=== PATIENT | female | born 1985 | race American Indian/Alaskan Native ===

== ENCOUNTER 2019-08-14 08:22 | Emergency (ER) | payer MEDICAID ==
[2019-08-14 08:33] VITALS: BP 180/106
--- NOTE | 2019-08-14 09:14 | Emergency Department Report ---
ED Female HPI - General Chief complaint: Urogenital-Female Stated complaint: UTI Time Seen by Provider: 08/14/19 08:59 Source: patient Mode of arrival: Ambulatory Limitations: No Limitations - History of Present Illness Initial comments: 34-year-old -[place] female with a past medical history of diabetes hypertension comes in thinking that she may have a urinary tract infection. Patient denies any pain but has been taking AZO's. She reports she has a العراقي discharge from the vaginal area. Patient denies any fevers or abdominal pain or pelvic pain. She reports her urine is dark she admits to drinking water and sodas. Are you Now?: No Last Menstrual Period: 07/28/19 EDC: 05/03/20 Associated Symptoms: denies other symptoms - Related Data Sexually active: Yes Previous Rx's Medication Instructions Recorded Last Taken Type Doxycycline Hyclate [Doxycycline 100 mg PO Q12HR 5 Days #10 tab 08/14/19 Unknown Rx Hyclate TAB] Allergies Allergy/AdvReac Type Severity Reaction Status Date / Time No Known Allergies Allergy Verified 08/14/19 08:23 ED Review of Systems ROS: Stated complaint: UTI Other details as noted in HPI Comment: All other systems reviewed and negative ED Past Medical Hx - Past Medical History Previous Medical History?: Yes Hx Hypertension: Yes Hx Diabetes: Yes - Surgical History Past Surgical History?: No - Social History Smoking Status: Current Every Day Smoker Substance Use Type: None - Medications Home Medications: Home Medications Medication Instructions Recorded Confirmed Last Taken Type Doxycycline Hyclate [Doxycycline 100 mg PO Q12HR 5 Days #10 tab 08/14/19 Unknown Rx Hyclate TAB] ED Physical Exam - General Limitations: No Limitations ED Course Vital Signs 08/14/19 08:32 Temperature 98.1 F Pulse Rate 91 H Respiratory 18 Rate Blood Pressure 180/106 O2 Sat by Pulse 100 Oximetry ED Medical Decision Making - Lab Data Laboratory Tests 08/14/19 Unknown Urine Color Yellow Urine Turbidity Clear Urine pH 8.0 H Ur Specific [place] 1.008 Urine Protein <15 mg/dl Urine Glucose (UA) Neg Urine Ketones Neg Urine Blood Neg Urine Nitrite Pos Urine Bilirubin Neg Urine Urobilinogen < 2.0 Ur Leukocyte Esterase Neg Urine WBC (Auto) 5.0 Urine RBC (Auto) 1.0 U Epithel Cells (Auto) 3.0 Urine Bacteria (Auto) 1+ - Medical Decision Making 34-year-old -[place] female with a past medical history of diabetes hypertension comes in thinking that she may have a urinary tract infection. Patient denies any pain but has been taking AZO's. She reports she has a العراقي discharge from the vaginal area. Patient denies any fevers or abdominal pain or pelvic pain. She reports her urine is dark she admits to drinking water and sodas. Urinalysis sent to lab. Critical care attestation.: If time is entered above; I have spent that time in minutes in the direct care of this critically ill patient, excluding procedure time. ED Disposition Clinical Impression: UTI (urinary tract infection) Qualifiers: Urinary tract infection type: site unspecified Hematuria presence: without hematuria Qualified Code(s): N39.0 - Urinary tract infection, site not specified Disposition: TO HOME OR SELFCARE Is pt being admited?: No Does the pt Need Aspirin: No Condition: Stable Instructions: Urinary Tract Infection in Women (ED) Prescriptions: Doxycycline Hyclate [Doxycycline Hyclate TAB] 100 mg PO Q12HR 5 Days #10 tab Referrals: PRIMARY CAREMD [Primary Care Provider] - 3-5 Days [facility] [Other] - 3-5 Days Forms: Work/School Release Form(ED)
[2019-08-14 09:39] LABS: Bacteria,Urine 1+ /HPF (Negative); Bilirubin,Urine NEG (Negative); Blood,Urine NEG (Negative); Color,Urine Yellow (Yellow); Protein,Urine <15 mg/dL mg/dL (Negative); Urobilinogen,Urine < 2.0 mg/dL (<2.0)
== END 2019-08-14 10:23 | disposition home or self-care (01) ==
LOC: ED 08:22
DX: N39.0 Urinary tract infection, site not specified (principal); I10 Essential (primary) hypertension; E11.9 Type 2 diabetes mellitus without complications; F17.200 Nicotine dependence, unspecified, uncomplicated
CPT/HCPCS: 81001; 87076; 87086; 87186

== ENCOUNTER 2020-12-16 16:02 | Emergency (ER) | payer SELFPAY ==
[2020-12-16] MEDS ORDERED: cloNIDine 0.2 MG TAB PO ONE (16:50)
[2020-12-16 18:01] LABS: Basophils % (Auto) 0.5 % (0.0-1.8); Eosinophils # (Auto) 0.2 K/mm3 (0.0-0.4); Hematocrit 35.6 % (30.3-42.9); Hemoglobin 11.2 gm/dl (10.1-14.3); Lymphocytes # (Auto) 3.1 K/mm3 (1.2-5.4); Lymphocytes % (Auto) 34.2 % (13.4-35.0); Mean Corpuscular HGB Conc 32 % (30-34); Mean Corpuscular Volume 72 fl (79-97); Monocytes # (Auto) 0.7 K/mm3 (0.0-0.8); Monocytes % (Auto) 7.5 % (0.0-7.3); Platelet Count 321 K/mm3 (140-440); Red Blood Count 4.98 M/mm3 (3.65-5.03); Red Cell Distribution Width 18.3 % (13.2-15.2)
[2020-12-16 18:07] LABS: BUN/Creatinine Ratio 14; Blood Urea Nitrogen 11 mg/dL (7-17); Calcium 9.4 mg/dL (8.4-10.2); Hemolysis Index 4
--- NOTE | 2020-12-16 18:46 | Emergency Department Report ---
Minor Respiratory - HPI Chief Complaint: Upper Respiratory Infection Stated Complaint: CHEST PAIN COLD Time Seen by Provider: 12/16/20 16:48 Duration: 2 weeks Pain Location: Chest Severity: moderate Minor Respiratory: Yes Able to Tolerate Fluids, Yes Cough, Yes Chest Pain, No Rhinorrhea, No Sore Throat, No Ear Pain, No Sick Contacts, No Hemoptysis, No Shortness of Breath, No Fever Other History: This is a 35-year-old female with past medical history of high blood pressure not controlled with medication presents to the ED complaining of intermittent coughing for the past 2 weeks. Patient states that coughing is productive with yellow mucus. Patient also states that she has had this for the past 2 weeks with no resolve. Patient also states that she ran out of her blood pressure medication and has not been taking it for a while now. Patient states that the coughing is causing her to have mid localized chest pain without any shortness of breath. Patient states she has had chills but denies fever/shortness of breath/asthma/abdominal pain/nausea vomiting or diarrhea ED Review of Systems ROS: Stated complaint: CHEST PAIN COLD Other details as noted in HPI Comment: All other systems reviewed and negative ED Past Medical Hx - Past Medical History Previous Medical History?: Yes Hx Hypertension: Yes Hx Diabetes: Yes - Social History Smoking Status: Current Every Day Smoker Substance Use Type: None - Medications Home Medications: Home Medications Medication Instructions Recorded Confirmed Last Taken Type Doxycycline Hyclate [Doxycycline 100 mg PO Q12HR 5 Days #10 tab 08/14/19 Unknown Rx Hyclate TAB] Albuterol Mdi (or & Nicu Only) 2 puff IH QID PRN #8.5 gram 12/16/20 Unknown Rx [ProAir HFA Inhaler] Benzonatate [Tessalon Perles] 100 mg PO Q8HR #20 capsule 12/16/20 Unknown Rx amLODIPine 10 mg PO DAILY #60 tab 12/16/20 Unknown Rx Minor Respiratory Exam - Exam General: Vital signs noted. No distress. Alert and acting appropriately. HEENT: Yes Moist Mucous Membranes, No Pharyngeal Erythema, No Pharyngeal Exud ates, No Rhinorrhea, No Conjuctival Injection, No Frontal Tenderness, No Maxillary Tenderness Ear: Neither TM Bulge, Neither TM Erythema, Neither EAC Pain, Neither EAC Discharge Neck: Yes Supple, No Adenopathy Lungs: Yes Good Air Exchange, No Wheezes, No Ronchi, No Stridor, No Cough, No Labored Respirations, No Retractions, No Use of Accessory Muscles, No Other Abnormal Lung Sounds Heart: Yes Regular, No Murmur Abdomen: Yes Normal Bowel Sounds, No Tenderness, No Peritoneal Signs Skin: No Rash, No Edema Neurologic: Alert and oriented, no deficits. Musculoskeletal: Unremarkable. ED Course Vital Signs 12/16/20 16:46 Temperature 99.4 F Pulse Rate 119 H Respiratory 18 Rate Blood Pressure 221/118 O2 Sat by Pulse 97 Oximetry ED Medical Decision Making - Lab Data Result diagrams: 12/16/20 17:28 12/16/20 17: Laboratory Last Values WBC 9.1 K/mm3 (4.5-11.0) 12/16/20 17: RBC 4.98 M/mm3 (3.65-5.03) 12/16/20 17: Hgb 11.2 gm/dl (10.1-14.3) 12/16/20: Hct 35.6 % (30.3-42.9) 12/16/20: MCV 72 fl (79-97) L 12/16/20 17: MCH 23 pg (28-32) L 12/16/20 17: MCHC 32 % (30-34) 12/16/20 17: RDW 18.3 % (13.2-15.2) H 12/16/20 17: Plt Count 321 K/mm3 (140-440) 12/16/20 17: Lymph % (Auto) 34.2 % (13.4-35.0) 12/16/20 17: [place] % (Auto) 7.5 % (0.0-7.3) H 12/16/20 17: Eos % (Auto) 2.0 % (0.0-4.3) 12/16/20: Baso % (Auto) 0.5 % (0.0-1.8) 12/16/20: Lymph # (Auto) 3.1 K/mm3 (1.2-5.4) 12/16/20 17: [place] # (Auto) 0.7 K/mm3 (0.0-0.8) 12/16/20 17: Eos # (Auto) 0.2 K/mm3 (0.0-0.4) 12/16/20 17:28 Baso # (Auto) 0.0 K/mm3 (0.0-0.1) 12/16/20 17:28 Seg Neutrophils % 55.8 % (40.0-70.0) 12/16/20 17: Seg Neutrophils # 5.1 K/mm3 (1.8-7.7) 12/16/20 17:28 Sodium 140 mmol/L (137-145) 12/16/20 17:28 Potassium 4.4 mmol/L (3.6-5.0) 12/16/20 17:28 Chloride 103.5 mmol/L (98-107) 12/16/20 17: Carbon Dioxide 26 mmol/L (22-30) 12/16/20 17:28 Anion Gap 15 mmol/L 12/16/20 17:28 BUN 11 mg/dL (7-17) 12/16/20 17: Creatinine 0.8 mg/dL (0.6-1.2) 12/16/20 17:28 Estimated GFR > 60 ml/min 12/16/20 17:28 BUN/Creatinine Ratio 14 % 12/16/20 17:28 Glucose 100 mg/dL (65-100) 12/16/20 17: Calcium 9.4 mg/dL (8.4-10.2) 12/16/20 17:28 Troponin T < 0.010 ng/mL (0.00-0.029) 12/16/20 17:28 HCG, Qual Negative (Negative) 12/16/20 17:28 Temp Pulse Resp BP Pulse Ox 98.1 F 82 18 153/105 97 12/16/20 20:34 12/16/20 20:34 12/16/20 20:34 12/16/20 20:34 12/16/20 20:34 - EKG Data EKG shows normal: sinus rhythm Rate: tachycardia - EKG Data Interpretation: LVH, other (LVH noted) - Radiology Data Radiology results: report reviewed, image reviewed - Medical Decision Making 35-year-old female presents with upper respiratory infection/bronchitis. Labs, troponin was negative. EKG mildly abnormal see result above Patient's blood pressure was overly elevated, clonidine 0.2 was given in triage. All labs are within normal limits. Chest x-ray shows no acute findings Discussed all findings with the patient. Discussed with patient follow-up with primary care physician. Patient is in no acute or respiratory distress throughout ED stay. Discussed with patient if she has any new or worsening symptoms she may return to the ED immediately. Critical care attestation.: If time is entered above; I have spent that time in minutes in the direct care of this critically ill patient, excluding procedure time. ED Disposition Clinical Impression: Bronchitis, Uncontrolled hypertension Disposition: DC- TO HOME OR SELFCARE Is pt being admited?: No Does the pt Need Aspirin: No Condition: Stable Instructions: Upper Respiratory Infection, Adult, [id number], Chronic Bronchitis (ED), Hypertension (ED) Additional Instructions: Make sure to follow up with the primary care physician as discussed. Take all your medications as you've been prescribed. If you have any worsening symptoms or develop new symptoms please return to ED immediately. Prescriptions: amLODIPine 10 mg PO DAILY #60 tab Albuterol Mdi (or & Nicu Only) [ProAir HFA Inhaler] 2 puff IH QID PRN #8.5 gram PRN Reason: Shortness Of Breath Benzonatate [Tessalon Perles] 100 mg PO Q8HR #20 capsule Referrals: PRIMARY CARE, [Primary Care Provider] - 3-5 Days [facility] [Outside] - 3-5 Days [facility] [Outside] - 3-5 Days Forms: Accompanied Note, Work/School Release Form(ED) Time of Disposition: 19:54
--- NOTE | 2020-12-16 19:16 | XRay Report ---
CHEST 2 VIEWS INDICATION: cp. COMPARISON: None FINDINGS: Support devices: None. Heart: Within normal limits. Lungs: No acute air space or interstitial disease. Pleura: No significant pleural effusion. No pneumothorax. Additional findings: None. IMPRESSION: 1. No acute findings. Signer Name: Rayshawn Peace MD Signed: 12/16/2020 7:12 PM Workstation Name: [id number]
[2020-12-16 20:35] VITALS: BP 153/105
== END 2020-12-16 20:40 | disposition home or self-care (01) ==
LOC: ED 16:02
DX: J40 Bronchitis, not specified as acute or chronic (principal); I10 Essential (primary) hypertension; E11.9 Type 2 diabetes mellitus without complications; F17.200 Nicotine dependence, unspecified, uncomplicated; Z79.899 Other long term (current) drug therapy
CPT/HCPCS: 36415; 71046; 80048; 84484; 84703; 85025; 93005